=== PATIENT | male | born 1985 | race Caucasian/White ===

== ENCOUNTER 2017-03-31 21:31 | Emergency (ER) | payer OTHER ==
[~2017-03-31] VITALS: Ht 175.3 cm; Wt 81.5 kg
[~2017-03-31 21:31] MED LIST: OXYCODONE HCL15 MG PO; OXYMORPHONE HCL30 MG PO; VISTARIL50 MG PO
[2017-03-31 23:22] LABS: MCH 28.4 PG (29.0-34.0); MCHC 33.7 G/DL (30.0-36.0); MCV 84.4 FL (86-99); MEAN PLAT.VOLUME 8.7 uM^3 (9.0-12.4); PLATELET COUNT 222 K/uL (156-360); RBC DIS.WIDTH-CV 12.9 % (11.8-14.6); RBC DIS.WIDTH-SD 39.8 % (39-53); RED BLOOD COUNT 4.86 M/uL (4.00-5.50); WHITE BLOOD COUNT 10.2 K/uL (4.1-10.2)
[2017-03-31 23:32] LABS: CHLORIDE 102 mEq/L (99-109); POTASSIUM 4.2 mEq/L (3.7-5.4); SODIUM 137 mEq/L (136-147)
[2017-03-31 23:35] LABS: GLUCOSE 90 mg/dL (70-99)
[2017-03-31 23:36] LABS: ANION GAP 7 MEQ/L (2-14); TOTAL BILIRUBIN 0.4 mg/dL (0.0-1.0)
[2017-03-31 23:38] LABS: ALKALINE PHOSPHATASE 78 IU/L (3-129); GFR ESTIMATE (CALCULATED) > 59 mL/min/
[2017-03-31 23:39] LABS: UREA NITROGEN (BUN) 9 mg/dL (9-23)
[2017-03-31 23:42] LABS: CREATINE KINASE 70 IU/L (1-294); LIPASE 35 U/L (1.0-51.0)
[2017-04-01] MEDS ORDERED: VALIUM5 MG PO (00:58)
[2017-04-01] MEDS ORDERED: PERCOCET 10/1 TABLET PO (00:58)
[2017-04-01] MEDS ORDERED: INDOCIN50 MG PO (00:58)
[2017-04-01 01:11] VITALS: BP 147/80
== END 2017-04-01 01:11 | disposition home or self-care (01) ==
LOC: RME 21:31 → EME 21:31 → RME 04-01 01:11
PROVIDERS: Physician Assistant
DX: R07.89 Other chest pain (principal)
CPT/HCPCS: 71020; 80053; 81003; 82550; 83690; 85027; 99281; 99284; J3010